=== PATIENT | male | born 1990 | race Caucasian/White ===

== ENCOUNTER 2017-11-26 14:22 | Emergency (ER) | payer OTHER ==
[~2017-11-26] VITALS: Ht 193 cm; Wt 65.0 kg
[2017-11-26 14:26] VITALS: BP 131/79; PULSE 66; RESP 15; TEMP 98.3; O2SAT 100
[2017-11-26 16:39] VITALS: PULSE 87; RESP 18; O2SAT 100
[2017-11-26] MEDS ORDERED: FAMOTIDINE 20 MG TAB PO ONE (17:00)
[2017-11-26] MEDS ORDERED: predniSONE 50 MG TAB PO ONE (17:00)
[2017-11-26] MEDS ORDERED: diphenhydrAMINE HCL 50 MG CAP PO ONE (17:00)
[2017-11-26] MEDS ORDERED: PRED20 PO (17:17)
--- NOTE | 2017-11-26 17:23 | PD ---
HPI Chief Complaint: Skin Problem Time Seen by Provider: 16:35 Travel History International Travel<30 days: No Contact w/Intl Traveler<30days: No Traveled to known affect area: No History of Present Illness HPI 27-year-old male presents emergency department concerned about a rash that began last night. States that he washed his clothes and a different detergents and developed a rash after putting on his clothes. Says that the rash started on his legs and has moved to his arms, trunk and neck. States that his ears have been swelling as well. States that his use Benadryl for control of symptoms but does not seem to be improving. He denies fever, chills, chest pain , shortness of breath, abdominal pain, nausea, vomiting, diarrhea. Denies recent travel, unusual foods, hotel visits. he has no history of this previously. Says immunizations are up-to-date. [facility] Social History Alcohol Use: No Tobacco Use: Yes (0.5 ppd) Substance Use: Yes (Clean for 8 days, former heroin user) Allergies-Medications (Allergen,Severity, Reaction): Coded Allergies: No Known Allergies (Unverified , 11/26/17) Reported Meds & Prescriptions Reported Meds & Active Scripts Active Prednisone 20 Mg Tab 20 Mg PO DAILY 7 Days Review of Systems Except as stated in HPI: all other systems reviewed are Neg Physical Exam Narrative GENERAL: Well-developed, well-nourished in no apparent distress SKIN: Focused skin assessment warm/dry. Diffuse and multiple diffuse papules over extremities, neck, abdomen, back. No obvious excoriations,urticaria HEAD: Atraumatic. Normocephalic. EYES: Pupils equal and round. No scleral icterus. No injection or drainage. ENT: No nasal bleeding or discharge. Mucous membranes pink and moist. No rashes or lesions in the oropharynx NECK: Trachea midline. No JVD. No lymphadenopathy CARDIOVASCULAR: Regular rate and rhythm. No murmur appreciated. RESPIRATORY: No accessory muscle use. Clear to auscultation. Breath sounds equal bilaterally. No wheezes or rales GASTROINTESTINAL: Abdomen soft, non-tender, nondistended. No CVA tenderness MUSCULOSKELETAL: No obvious deformities. No clubbing. No cyanosis. No edema. NEUROLOGICAL: Awake and alert. No obvious cranial nerve deficits. Motor grossly within normal limits. Normal speech. PSYCHIATRIC: Appropriate mood and affect; insight and judgment normal. Data Data Last Documented VS Vital Signs Date Time Temp Pulse Resp B/P (MAP) Pulse Ox O2 Delivery O2 Flow Rate FiO2 11/26/17 16:39 87 18 100 Room Air 11/26/17 14:26 98.3 131/79 (96) Orders Orders Diphenhydramine (Benadryl) (11/26/17 17:00) Prednisone (Deltasone) (11/26/17 17:00) Famotidine (Pepcid) (11/26/17 17:00) Ed Discharge Order (11/26/17 18:10) [facility] Medical Decision Making Medical Screen Exam Complete: Yes Emergency Medical Condition: Yes Differential Diagnosis Contact dermatitis, allergic reaction, anaphylaxis Narrative Course 25-year-old male presents emergency department concerned about a rash started last night. States his rash began on his legs and migrated to his trunk and upper extremities and into his neck. Patient denies shortness of breath. No obvious risk factors for development of this rash however, patient states that he is a different determinate detergent yesterday which may have precipitated this event. Pt has been taking benedryl but no significant decrease in symptoms. No sick contacts. No fever/chills. No recent travel or new food. 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 Pt administered Benadryl, prednisone, famotidine in the emergency department today. Patient was observed for a period of time to ensure stability. Patient likely has an allergic reaction secondary to the new detergent he was yesterday, possibly in combination with extra perspiration. Advised that although he washed his close and took a shower remnants of this detergent may still be present, contributing to his rash. Patient will be discharged prednisone. Advised to continue to take Benadryl for his symptoms. Diagnosis Primary Impression: Allergic dermatitis Referrals: Primary Care Physician Additional Instructions: Ensure you thoroughly wash all of your closed that have been previously been in contact with the detergent. Take all medication as prescribed. Continue to take Benadryl per package instructions for your itching. If your symptoms persist or worsen return to the emergency department. Scripts Prednisone (Prednisone) 20 Mg Tab 20 MG PO DAILY for 7 Days, #7 TAB 0 Refills Prov: Sugar Padron 11/26/17 Disposition: 01 DISCHARGE HOME Condition: Stable Sugar Padron Nov 26, 2017 17:23
== END 2017-11-26 18:23 | disposition home or self-care (01) ==
LOC: NEPC 14:22
DX: L23.9 Allergic contact dermatitis, unspecified cause (principal); F17.200 Nicotine dependence, unspecified, uncomplicated
CPT/HCPCS: 99283; J7512; Q0163